=== PATIENT | male | born 1990 | race Caucasian/White ===

== ENCOUNTER 2019-10-07 09:29 | Emergency (ER) | payer OTHER ==
[~2019-10-07] VITALS: Ht 188 cm; Wt 92.2 kg
[2019-10-07 09:30] VITALS: BP 134/73
[2019-10-07] MEDS ORDERED: ONDA4TAB6 PO (10:53)
== END 2019-10-07 11:01 | disposition home or self-care (01) ==
LOC: M ED 09:29
DX: S06.0X0A Concussion without loss of consciousness, initial encounter (principal); W50.0XXA Accidental hit or strike by another person, initial encounter; Y92.310 Basketball court as the place of occurrence of the external cause; Y93.67 Activity, basketball; Y99.9 Unspecified external cause status; Z88.8 Allergy status to other drugs, medicaments and biological substances

== ENCOUNTER 2020-05-10 15:52 | Emergency (ER) | payer OTHER ==
[~2020-05-10] VITALS: Ht 188 cm; Wt 100.1 kg
[~2020-05-10 15:52] MED LIST: ONDA4TAB6 PO
[2020-05-10] MEDS ORDERED: IBUP-1114 PO (15:58)
--- NOTE | 2020-05-10 18:03 | REPVR ---
PROCEDURE INFORMATION: Exam: US Pelvis Limited, Male Exam date and time: 05/10/2020 5:55 PM Age: 30 years old Clinical indication: Pain; Other: Groin; Additional info: Groin pain TECHNIQUE: Imaging protocol: Real-time pelvic ultrasound with image documentation. COMPARISON: No relevant prior studies available. FINDINGS: Soft tissues: Imaging in the right groin in the area of clinical concern demonstrates a small hypoechoic focus measuring 5.1 x 3.7 x 4.3 mm. IMPRESSION: Imaging in the right groin in the area of clinical concern demonstrates a small hypoechoic focus measuring 5.1 x 3.7 x 4.3 mm. Electronically signed by: Geovani Hutson On 05/10/2020 18:02:42 PM
[2020-05-10] MEDS ORDERED: BACT800T5 PO (18:09)
[2020-05-10 18:17] VITALS: BP 152/94
== END 2020-05-10 18:24 | disposition home or self-care (01) ==
LOC: M ED 15:52
DX: R19.09 Other intra-abdominal and pelvic swelling, mass and lump (principal); Z88.8 Allergy status to other drugs, medicaments and biological substances